=== PATIENT | male | born 1960 | race Caucasian/White ===

== ENCOUNTER 2016-12-01 10:22 | Inpatient (IN) | payer OTHER ==
[2016-12-01 12:37] VITALS: BMI 24.0
--- NOTE | 2016-12-01 16:34 | HP ---
CIWA Score - CIWA Score Nausea/Vomitin-No Nausea/No Vomiting Muscle Tremors: 4-Moderate,w/Arms Extend Anxiety: 4-Mod. Anxious/Guarded Agitation: 4-Moderately Restless Paroxysmal Sweats: 1-Minimal Palms Moist Orientation: 1-Uncertain about Date Tacttile Disturbances: 0-None Auditory Disturbances: 0-None Visual Disturbances: 0-None Headache: 0-None Present CIWA-Ar Total Score: 14 Admission [facility] - HPI Chief Complaint: withdrawal sx Allergies/Adverse Reactions: Allergies Allergy/AdvReac Type Severity Reaction Status Date / Time No Known Allergies Allergy Verified 12/01/16 16:00 History of Present Illness: 56 years old male with long history of alcohol nicotine dependence, alcohol intoxication treated at "[facility]" over night, received "benzo" for timorous, released 12/01/[address] [facility] for alcohol detox has diabetes ii, neuropathy, sciatic of legs asthma gerd and depression is admitted to detox Exam Limitations: No Limitations - Ebola screening Have you traveled outside of the country in the last 21 days: No Have you had contact with anyone from an Ebola affected area: No Have you been sick,other than usual withdrawal symptoms: No Do you have a fever: No - Review of Systems Constitutional: Loss of Appetite, Changes in sleep, Unintentional Wgt. Loss, Unexplained wgt Loss EENT: reports: Blurred Vision (needs eye glasses), Dental Problems (few teeth left "I can chew") Respiratory: reports: SOB with Exertion, Productive cough (yellowish) Cardiac: reports: No Symptoms Reported GI: reports: Nausea, Poor Appetite, Poor Fluid Intake, Indigestion, Abdominal cramping : reports: No Symptoms Reported Musculoskeletal: reports: Back Pain, Joint Pain (both legs neuropathy), Joint Swelling (right foot left wrist), Muscle Pain, Neck Pain Integumentary: reports: No Symptoms Reported Neuro: reports: Tremors Endocrine: reports: Increased Urine Hematology: reports: No Symptoms Reported Psychiatric: reports: Judgement Intact, Anxious, Depressed Other Systems: Reviewed and Negative Patient History - Patient Medical History Hx Anemia: No Hx Asthma: Yes Hx Chronic Obstructive Pulmonary Disease (COPD): Yes Hx Cancer: No Hx Cardiac Disorders: No Hx Congestive Heart Failure: No Hx Hypertension: No Hx Hypercholesterolemia: No Hx Pacemaker: No HX Cerebrovascular Accident: No Hx Seizures: No Hx Dementia: No Hx Diabetes: Yes Hx Gastrointestinal Disorders: Yes Hx Liver Disease: No Hx Genitourinary Disorders: No Hx Sexually Transmitted Disorders: No Hx Renal Disease (ESRD): No Hx Thyroid Disease: No Hx Human Immunodeficiency Virus (HIV): No Hx Hepatitis C: No Hx Depression: Yes Hx Suicide Attempt: No Hx Bipolar Disorder: No Hx Schizophrenia: No - Patient Surgical History Past Surgical History: Yes Hx Neurologic Surgery: No Hx Cataract Extraction: No Hx Cardiac Surgery: No Hx Lung Surgery: No Hx Breast Surgery: No Hx Breast Biopsy: No Hx Abdominal Surgery: Yes (HERNIA SX 2001) Hx Appendectomy: No Hx Cholecystectomy: No Hx Genitourinary Surgery: No Hx Orthopedic Surgery: Yes (right leg 2014) Other Surgical History: NECK SX left arm Anesthesia Reaction: No - PPD History Previous Implant?: Yes Documented Results: Negative w/proof Implanted On Prior [facility] Admission?: Yes Date: 05/07/11 PPD to be Administered?: Yes - Smoking Cessation Smoking history: Current every day smoker Have you smoked in the past 12 months: Yes Aproximately how many cigarettes per day: 1 Cigars Per Day: 0 Hx Chewing Tobacco Use: No Initiated information on smoking cessation: Yes 'Breaking Loose' booklet given: 12/01/16 - Substance & Tx. History Hx Alcohol Use: Yes Hx Substance Use: Yes Substance Use Type: Alcohol, Heroin Hx Substance Use Treatment: Yes (2011 [facility]) - Substances Abused Alcohol Route: Oral Frequency: Daily Alcohol-vodka Route: Oral Frequency: Daily Amount used: 2 pts. Age of first use: 17 Date of Last Use: 12/01/16 Family Disease History - Family Disease History Family Disease History: Diabetes: Sister, Heart Disease: Mother (), Other: Father (/suicidal), Mother Admission Physical Exam S - Vital Signs Vital Signs: Vital Signs - 24 hr 12/01/16 12:29 Temperature 97.5 F L Pulse Rate 60 Respiratory 18 Rate Blood Pressure 124/70 - Physical General Appearance: Yes: Appropriately Dressed, Mild Distress, Alcohol on Breath , Thin, Tremorous, Irritable, Sweating, Anxious HEENTM: Yes: Hearing grossly Normal, Normal ENT Inspection, Normocephalic, Normal Voice Respiratory: Yes: No Respiratory Distress, No Accessory Muscle Use, Rhonchi, Wheezing, Hyperresonant Neck: Yes: Supple, Trachea in good position Breast: Yes: Breasts Symetrical Cardiology: Yes: Regular Rhythm, Regular Rate, S1, S2 Abdominal: Yes: Non Tender, Soft, Increased Bowel Sounds Genitourinary: Yes: Within Normal Limits Back: Yes: Normal Inspection Musculoskeletal: Yes: Gait Steady (cane) Extremities: Yes: Non-Tender, Tremors Neurological: Yes: Alert, Normal Response, Depressed Affect Integumentary: Yes: Warm Lymphatic: Yes: Within Normal Limits - Diagnostic (1) Alcohol dependence with uncomplicated withdrawal Current Visit: Yes Status: Acute (2) Methadone maintenance therapy patient Current Visit: Yes Status: Chronic Comment: 260 mg verification pending (3) Asthma Current Visit: Yes Status: Chronic Qualifiers: Asthma severity: moderate Asthma complication type: with status asthmaticus (4) COPD (chronic obstructive pulmonary disease) Current Visit: Yes Status: Chronic Qualifiers: COPD type: emphysema Emphysema type: unilateral Qualified Code(s ): J43.0 - Unilateral pulmonary emphysema [MacLeod's syndrome]; J43.0 - Unilateral pulmonary emphysema [MacLeod's syndrome]; J43.0 - Unilateral pulmonary emphysema [MacLeod's syndrome]; J43.0 - Unilateral pulmonary emphysema [MacLeod's syndrome] (5) GERD (gastroesophageal reflux disease) Current Visit: Yes Status: Chronic Qualifiers: Esophagitis presence: without esophagitis Qualified Code(s): K21.9 - Gastro-esophageal reflux disease without esophagitis; K21.9 - Gastro- esophageal reflux disease without esophagitis; K21.9 - Gastro-esophageal reflux disease without esophagitis (6) Nicotine dependence Current Visit: Yes Status: Acute Qualifiers: Nicotine product type: cigarettes Substance use status: in withdrawal Qualified Code(s): F17.213 - Nicotine dependence, cigarettes, with withdrawal; F17.213 - Nicotine dependence, cigarettes, with withdrawal (7) 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 Current Visit: Yes Status: Chronic (8) Neuropathy Current Visit: Yes Status: Chronic Comment: both legs (9) Weight loss Current Visit: Yes Status: Acute (10) Arthritis, lumbar spine Current Visit: Yes Status: Chronic (11) Mobility impaired Current Visit: Yes Status: Chronic Comment: left wrist (12) Use of cane as ambulatory aid Current Visit: Yes Status: Chronic Cleared for Admission [facility] - Detox or Rehab [facility] Level of Care: Medically Managed [facility]ox [facility] Alcohol Content Breath Alcohol Content: 0.030 Urine Drug Screen - Results Drug Screen Negative: No Urine Drug Screen Results: BZO-Benzodiazepines, MTD-Methadone
[2016-12-01] MEDS ORDERED: chlordiazePOXIDE HCL 25 MG CAPSULE PO PRN (16:41)
[2016-12-01] MEDS ORDERED: MAG HYDROX/AL HYDROX/SIMETH 30 ML UNIT-DOSE CUP PO PRN (16:41)
[2016-12-01] MEDS ORDERED: MENTHOL/PHENOL 1 EACH UD MM PRN (16:41)
[2016-12-01] MEDS ORDERED: NICOTINE 14 MG/24 HOURS TOPICAL PATCH TD PRN (16:41)
[2016-12-01] MEDS ORDERED: NICOTINE POLACRILEX 2 MG GUM BUC PRN (16:41)
[2016-12-01] MEDS ORDERED: MAGNESIUM CITRATE 300 ML BOTTLE PO PRN (16:41)
[2016-12-01] MEDS ORDERED: LOPERAMIDE HCL 2 MG CAPSULE PO PRN (16:41)
[2016-12-01] MEDS ORDERED: ACETAMINOPHEN 325 MG TABLET (FP) PO PRN (16:41)
[2016-12-01] MEDS ORDERED: MAGNESIUM HYDROX 2400MG/30ML ORAL SUSPENSION 30 ML CUP PO PRN (16:41)
[2016-12-01] MEDS ORDERED: guaiFENesin/D-METHORPHAN HB 10 ML UNIT-DOSE CUPS PO PRN (16:41)
[2016-12-01] MEDS ORDERED: P-EPHED 60MG/TRIPROLIDI 2.5MG TABLET PO PRN (16:41)
[2016-12-01] MEDS ORDERED: ALBUTEROL SO4 2.5/IPRATROPIUM 0.5 INH SOL 3 ML VIAL.NEB. NEB PRN (16:44)
[2016-12-01] MEDS ORDERED: ALBUTEROL SO4 18 GM HFA INHALER IH PRN (16:44)
[2016-12-01] MEDS ORDERED: METHOCARBAMOL 500 MG TABLET PO PRN (17:54)
[2016-12-01] MEDS ORDERED: diphenhydrAMINE HCL 50 MG CAPSULE PO PRN (22:00)
[2016-12-01 22:18] LABS: URINE APPEARANCE CLEAR; URINE BILIRUBIN NEGATIVE (NEGATIVE); URINE BLOOD NEGATIVE (NEGATIVE); URINE COLOR LTYELLOW; URINE GLUCOSE (UA) NEGATIVE (NEGATIVE); URINE KETONE NEGATIVE (NEGATIVE); URINE NITRITE NEGATIVE (NEGATIVE); URINE PROTEIN NEGATIVE (NEGATIVE); URINE UROBILINOGEN NEGATIVE mg/dL (0.2-1.0)
[2016-12-01] MEDS: BUDESONIDE/FORMETEROL FUMARATE 80/4.5 mcg INHALER IH SCH (22:33)
[2016-12-01] MEDS: chlordiazePOXIDE HCL 25 MG CAPSULE PO SCH (22:34)
[2016-12-01] MEDS: THIAMINE HCL 100 MG TABLET (FP) PO SCH (22:34)
[2016-12-01] MEDS: MONTELUKAST NA 10 MG TABLET PO SCH (22:34)
[2016-12-01] MEDS: LIDOCAINE PATCH REMOVAL MC SCH (22:34)
[2016-12-01] MEDS: RANITIDINE HCL 150 MG TABLET (FP) PO SCH (22:34)
[2016-12-01] MEDS: GABAPENTIN 300 MG CAPSULE (FP) PO SCH (22:34)
[2016-12-01 23:02] LABS: URINE LEUK ESTERASE Negative (NEGATIVE)
[2016-12-02] MEDS: glipiZIDE-XL 5 MG TAB.ER.24 PO SCH (06:30)
[2016-12-02] MEDS: metFORMIN HCL 500 MG TABLET (FP) PO SCH ×2 (06:30→17:42)
[2016-12-02] MEDS: chlordiazePOXIDE HCL 25 MG CAPSULE PO SCH ×4 (06:30→22:24)
[2016-12-02] MEDS: GABAPENTIN 300 MG CAPSULE (FP) PO SCH ×3 (06:30→22:20)
[2016-12-02] MEDS ORDERED: METHADONE HCL 10 MG TABLET PO ONE (09:06)
[2016-12-02] MEDS ORDERED: METHADONE PO ONE (09:38)
--- NOTE | 2016-12-02 09:51 | EKG ---
Test Reason : Blood Pressure : / mmHG Vent. Rate : 046 BPM Atrial Rate : 046 BPM P-R Int : 174 ms QRS Dur : 088 ms QT Int : 522 ms P-R-T Axes : 061 000 062 degrees QTc Int : 456 ms SINUS BRADYCARDIA WITH SINUS ARRHYTHMIA NO PREVIOUS ECGS AVAILABLE Confirmed by RYAN GOODWIN MD ([id number]) on 12/02/2016 9:50:54 AM Referred By: Confirmed By:RYAN GOODWIN MD
[2016-12-02 09:57] LABS: MCH 27.4 pg (25.7-33.7); MCHC 31.8 g/dl (32.0-35.9); MEAN PLT VOLUME 7.9 fl (7.5-11.1); PLATELET COUNT 227 K/MM3 (134-434); RDW 16.2 % (11.9-15.9); WHITE BLOOD COUNT 8.3 K/mm3 (4.0-10.0)
[2016-12-02] MEDS ORDERED: METHADONE HCL 10 MG TABLET ONE (10:02)
[2016-12-02] MEDS ORDERED: METHADONE HCL 40 MG DISPERSABLE TABLET ONE (10:03)
[2016-12-02 10:13] LABS: ALBUMIN 2.9 g/dl (3.4-5.0); ALK PHOS 69 U/L (45-117); ANION GAP 7 (8-16); BILIRUBIN,TOTAL 0.3 mg/dL (0.2-1.0); CALCIUM 8.2 mg/dL (8.5-10.1); CO2 29 mmol/L (21-32); CREATININE 0.8 mg/dL (0.7-1.3); GLUCOSE,RANDOM 120 mg/dL (74-106); SGOT/AST 22 U/L (15-37); SGPT/ALT 28 U/L (12-78); TOT PROT 6.1 g/dl (6.4-8.2)
[2016-12-02] MEDS: BUDESONIDE/FORMETEROL FUMARATE 80/4.5 mcg INHALER IH SCH ×2 (10:23→22:21)
[2016-12-02] MEDS: LIDOCAINE 5% TOPICAL PATCH TP SCH (10:24)
[2016-12-02] MEDS: RANITIDINE HCL 150 MG TABLET (FP) PO SCH ×2 (10:24→22:20)
[2016-12-02] MEDS: ASPIRIN 81 MG CHEWABLE TABLETS PO SCH (10:24)
[2016-12-02] MEDS: PRENATAL VITAMINS W/ FOLIC ACID TABLET (FP) PO SCH (10:24)
[2016-12-02 10:28] LABS: HIV 1 & 2 AB NEGATIVE; HIV 1 AGp24 NEGATIVE
--- NOTE | 2016-12-02 12:01 | PN ---
[facility] CIWA - CIWA Score Nausea/Vomitin-No Nausea/No Vomiting Muscle Tremors: 4-Moderate,w/Arms Extend Anxiety: 4-Mod. Anxious/Guarded Agitation: 4-Moderately Restless Paroxysmal Sweats: 1-Minimal Palms Moist Orientation: 0-Oriented Tacttile Disturbances: 3-Moderate Itch/Numb/Burn Auditory Disturbances: 0-None Visual Disturbances: 0-None Headache: 0-None Present CIWA-Ar Total Score: 16 S Progress Note (SOAP) Subjective: ANXIETY,SWEATS,TREMORS,IRRITABILITY,INTERMITTENT SLEEP. Objective: 12/02/16 12:00 Vital Signs Temperature 96.4 F L 12/02/16 09:55 Pulse Rate 98 H 12/02/16 09:55 Respiratory Rate 18 12/02/16 09:55 Blood Pressure 128/82 12/02/16 09:55 O2 Sat by Pulse Oximetry (%) Laboratory Last Values WBC 8.3 K/mm3 (4.0-10.0) 12/02/16 07:00 RBC 4.73 M/mm3 (4.00-5.60) 12/02/16 07:00 Hgb 13.0 GM/dL (11.7-16.9) 12/02/16 07:00 Hct 40.7 % (35.4-49) 12/02/16 07:00 MCV 86.0 fl (80-96) 12/02/16 07:00 MCH 27.4 pg (25.7-33.7) 12/02/16 07:00 MCHC 31.8 g/dl (32.0-35.9) L 12/02/16 07:00 RDW 16.2 % (11.9-15.9) H 12/02/16 07:00 Plt Count 227 K/MM3 (134-434) D 12/02/16 07:00 MPV 7.9 fl (7.5-11.1) 12/02/16 07:00 Sodium 139 mmol/L (136-145) 12/02/16 07:00 Potassium 4.2 mmol/L (3.5-5.1) 12/02/16 07:00 Chloride 103 mmol/L (98-107) 12/02/16 07:00 Carbon Dioxide 29 mmol/L (21-32) 12/02/16 07:00 Anion Gap 7 (8-16) L 12/02/16 07:00 BUN 9 mg/dL (7-18) D 12/02/16 07:00 Creatinine 0.8 mg/dL (0.7-1.3) 12/02/16 07:00 Creat Clearance w eGFR > 60 (>60) 12/02/16 07:00 POC Glucometer 131 UNITS (()) 12/02/16 06:26 Random Glucose 120 mg/dL (74-106) H D 12/02/16 07:00 Calcium 8.2 mg/dL (8.5-10.1) L 12/02/16 07:00 Total Bilirubin 0.3 mg/dL (0.2-1.0) 12/02/16 07:00 AST 22 U/L (15-37) D 12/02/16 07:00 ALT 28 U/L (12-78) 12/02/16 07:00 Alkaline Phosphatase 69 U/L (45-117) 12/02/16 07:00 Total Protein 6.1 g/dl (6.4-8.2) L 12/02/16 07:00 Albumin 2.9 g/dl (3.4-5.0) L 12/02/16 07:00 Urine Color Ltyellow 12/01/16 21:30 Urine Appearance Clear 12/01/16 21:30 Urine pH 6.0 (5.0-8.0) 12/01/16 21:30 Ur Specific [place] 1.010 (1.005-1.025) 12/01/16 21:30 Urine Protein Negative (NEGATIVE) 12/01/16 21:30 Urine Glucose (UA) Negative (NEGATIVE) 12/01/16 21:30 Urine Ketones Negative (NEGATIVE) 12/01/16 21:30 Urine Blood Negative (NEGATIVE) 12/01/16 21:30 Urine Nitrite Negative (NEGATIVE) 12/01/16 21:30 Urine Bilirubin Negative (NEGATIVE) 12/01/16 21:30 Urine Urobilinogen Negative mg/dL (0.2-1.0) 12/01/16 21:30 Ur Leukocyte Esterase Negative (NEGATIVE) 12/01/16 21:30 HIV 1&2 Antibody Screen Negative 12/02/16 08:30 HIV P24 Antigen Negative 12/02/16 08:30 Assessment: 12/02/16 12:01 WITHDRAWAL SX Plan: CONTINUE DETOX START ZANTAC 150 MG PO BID
--- NOTE | 2016-12-02 16:26 | CONSULT ---
[facility] Psychiatric Consult - Data Date of interview: 12/02/16 Admission source: [facility] Identifying data: Readmission to [facility] for this 56 y/o [place] male seeking detox treatment on for alcohol and heroin dependence.Patient is single,a father of one,homeless,unemployed and supported on SSI benefits. Substance Abuse History: Confirmed by royer in this interview. Smoking Cessation. Smoking history: Current every day smoker. Have you smoked in the past 12 months: Yes. Aproximately how many cigarettes per day: 1. Cigars Per Day: 0. Hx Chewing Tobacco Use: No. Initiated information on smoking cessation : Yes. 'Breaking Loose' booklet given: 12/01/16. - Substance & Tx. History. Hx Alcohol Use: Yes. Hx Substance Use: Yes. Substance Use Type: Alcohol, Heroin. Hx Substance Use Treatment: Yes (2011). - Substances Abused. Alcohol. Route: Oral. Frequency: Daily. Alcohol-vodka. Route : Oral. Frequency: Daily. Amount used: 2 pts. Age of first use: 17. Date of Last Use: 12/01/16 Medical History: Remarkable for COPD,emphysema,diabetes mellitus,GERD,sciatica, neuropathy,past history of inguinal herniorraphy + orthosurgery (left leg in 2015). Psychiatric History: Patient denies history of psychiatric hospitalizations.Diagnosed with PTSD and Anxiety Disorder.Followed at a mental health clinic in the [place] (name not recalled by patient but telephone is ).It appears that the patient is residing at [facility] ( followed on site by [email or web address]).Medicated with geodon as per self- report.Mr Sagastume denies history of suicide attempts.Patient is on methadone maintenance (260 mg/day). Physical/Sexual Abuse/Trauma History: Denies. Additional Comment: Urine Drug Screen Results: BZO-Benzodiazepines, MTD- Methadone.Noted. Mental Status Exam - Mental Status Exam Alert and Oriented to: Time, Place, Person Cognitive Function: Good Patient Appearance: Well Groomed (tattoos on foerarms) Mood: Hopeful, Euthymic Affect: Appropriate, Normal Range Patient Behavior: Fatigued, Cooperative Speech Pattern: Clear (bilingual) Voice Loudness: Normal Thought Process: Intact, Goal Oriented Thought Disorder: Not Present Hallucinations: Denies Suicidal Ideation: Denies Homicidal Ideation: Denies Insight/Judgement: Poor Sleep: Poorly, Difficulty falling asleep Appetite: Fair Gait/Station: Other (walks with a cane) Psychiatric Findings - Problem List ([place] 1, 2,3) (1) Alcohol dependence with uncomplicated withdrawal Current Visit: Yes Status: Acute (2) Opioid dependence on agonist therapy Current Visit: Yes Status: Acute (3) Nicotine dependence Current Visit: Yes Status: Acute Qualifiers: Nicotine product type: cigarettes Substance use status: in withdrawal Qualified Code(s): F17.213 - Nicotine dependence, cigarettes, with withdrawal; F17.213 - Nicotine dependence, cigarettes, with withdrawal (4) Substance induced mood disorder Current Visit: Yes Status: Acute (5) Post traumatic stress disorder (PTSD) Current Visit: Yes Status: Chronic Comment: Reported by patient. (6) Weight loss Current Visit: Yes Status: Chronic (7) Arthritis, lumbar spine Current Visit: Yes Status: Chronic (8) Asthma Current Visit: Yes Status: Chronic Qualifiers: Asthma severity: moderate Asthma complication type: with status asthmaticus (9) COPD (chronic obstructive pulmonary disease) Current Visit: Yes Status: Chronic Qualifiers: COPD type: emphysema Emphysema type: unilateral Qualified Code(s ): J43.0 - Unilateral pulmonary emphysema [MacLeod's syndrome]; J43.0 - Unilateral pulmonary emphysema [MacLeod's syndrome]; J43.0 - Unilateral pulmonary emphysema [MacLeod's syndrome]; J43.0 - Unilateral pulmonary emphysema [MacLeod's syndrome] (10) 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 Current Visit: Yes Status: Chronic (11) GERD (gastroesophageal reflux disease) Current Visit: Yes Status: Chronic Qualifiers: Esophagitis presence: without esophagitis Qualified Code(s): K21.9 - Gastro-esophageal reflux disease without esophagitis; K21.9 - Gastro- esophageal reflux disease without esophagitis; K21.9 - Gastro-esophageal reflux disease without esophagitis (12) Neuropathy Current Visit: Yes Status: Chronic Comment: both legs (13) Use of cane as ambulatory aid Current Visit: Yes Status: Chronic (14) Insomnia Current Visit: Yes Status: Acute - Initial Treatment Plan Initial Treatment Plan: Psychoeducation.Detoxification.Medications : celexa 20 mg po daily + geodon 20 mg po bid + benadryl 50 mg po at bedtime.Side effects/ benefits of each medication are discussed with patient.He agrees with this careplan.Observation.Medications are verified with staff at [facility] (doses are reduced by half as a caution against oversedation).
[2016-12-02] MEDS: MONTELUKAST NA 10 MG TABLET PO SCH (22:21)
[2016-12-02] MEDS: THIAMINE HCL 100 MG TABLET (FP) PO SCH (22:21)
[2016-12-02] MEDS: ZIPRASIDONE 20 MG CAPSULE PO SCH (22:23)
[2016-12-02] MEDS: LIDOCAINE PATCH REMOVAL MC SCH (22:23)
[2016-12-03] MEDS ORDERED: METHADONE HCL 10 MG TABLET PO SCH (06:00)
[2016-12-03] MEDS ORDERED: METHADONE HCL 10 MG TABLET ONE (06:09)
[2016-12-03] MEDS ORDERED: METHADONE HCL 40 MG DISPERSABLE TABLET ONE (06:09)
[2016-12-03] MEDS: METHADONE PO SCH (06:10)
[2016-12-03] MEDS: GABAPENTIN 300 MG CAPSULE (FP) PO SCH ×3 (06:10→22:42)
[2016-12-03] MEDS: chlordiazePOXIDE HCL 25 MG CAPSULE PO SCH ×3 (06:45→17:33)
[2016-12-03] MEDS: metFORMIN HCL 500 MG TABLET (FP) PO SCH ×2 (07:56→17:33)
[2016-12-03] MEDS: glipiZIDE-XL 5 MG TAB.ER.24 PO SCH (07:57)
[2016-12-03] MEDS: ASPIRIN 81 MG CHEWABLE TABLETS PO SCH (11:06)
[2016-12-03] MEDS: PRENATAL VITAMINS W/ FOLIC ACID TABLET (FP) PO SCH (11:06)
[2016-12-03] MEDS: RANITIDINE HCL 150 MG TABLET (FP) PO SCH ×2 (11:06→22:42)
[2016-12-03] MEDS: ZIPRASIDONE 20 MG CAPSULE PO SCH ×2 (11:07→22:43)
[2016-12-03] MEDS: CITALOPRAM HYDROBROMIDE 20 MG TABLET (FP) PO SCH (11:07)
[2016-12-03] MEDS: LIDOCAINE 5% TOPICAL PATCH TP SCH (11:09)
[2016-12-03] MEDS: BUDESONIDE/FORMETEROL FUMARATE 80/4.5 mcg INHALER IH SCH ×2 (11:10→22:41)
--- NOTE | 2016-12-03 15:17 | PN ---
[facility] CIWA - CIWA Score Nausea/Vomitin-No Nausea/No Vomiting Muscle Tremors: 4-Moderate,w/Arms Extend Anxiety: 2 Agitation: 2 Paroxysmal Sweats: 3 Orientation: 0-Oriented Tacttile Disturbances: 2-Mild Itch/Numbness/Burn Auditory Disturbances: 0-None Visual Disturbances: 3-Moderate Sensitivity Headache: 0-None Present CIWA-Ar Total Score: 16 S Progress Note (SOAP) Subjective: Body Aches, Tremors, Interrupted sleep. Objective: PT. A & O X 3, OBSERVED AMBULATING ON UNIT WITH ASSISTANCE OF A CANE. NO ACUTE DISTRESS. 12/03/16 15:15 Vital Signs Temperature 96.0 F L 12/03/16 14:56 Pulse Rate 70 12/03/16 14:56 Respiratory Rate 20 12/03/16 14:56 Blood Pressure 107/77 12/03/16 14:56 O2 Sat by Pulse Oximetry (%) Laboratory Tests 12/01/16 12/01/16 12/01/16 07:00 16:47 21:30 WBC RBC Hgb Hct MCV MCH MCHC RDW Plt Count MPV Sodium Potassium Chloride Carbon Dioxide Anion Gap BUN Creatinine Creat Clearance w eGFR POC Glucometer 160 Random Glucose Calcium Total Bilirubin AST ALT Alkaline Phosphatase Total Protein Albumin Urine Color Ltyellow Urine Appearance Clear Urine pH 6.0 Ur Specific [place] 1.010 Urine Protein Negative Urine Glucose (UA) Negative Urine Ketones Negative Urine Blood Negative Urine Nitrite Negative Urine Bilirubin Negative Urine Urobilinogen Negative Ur Leukocyte Esterase Negative RPR Titer Hepatitis C Antibody <0.1 HIV 1&2 Antibody Screen HIV P24 Antigen 12/02/16 12/02/16 12/02/16 06:26 07:00 07:00 WBC 8.3 RBC 4.73 Hgb 13.0 Hct 40.7 MCV 86.0 MCH 27.4 MCHC 31.8 L RDW 16.2 H Plt Count 227 D MPV 7.9 Sodium 139 Potassium 4.2 Chloride 103 Carbon Dioxide 29 Anion Gap 7 L BUN 9 D Creatinine 0.8 Creat Clearance w eGFR > 60 POC Glucometer 131 Random Glucose 120 H D Calcium 8.2 L Total Bilirubin 0.3 AST 22 D ALT 28 Alkaline Phosphatase 69 Total Protein 6.1 L Albumin 2.9 L Urine Color Urine Appearance Urine pH Ur Specific [place] Urine Protein Urine Glucose (UA) Urine Ketones Urine Blood Urine Nitrite Urine Bilirubin Urine Urobilinogen Ur Leukocyte Esterase RPR Titer Hepatitis C Antibody HIV 1&2 Antibody Screen HIV P24 Antigen 12/02/16 12/02/16 12/02/16 07:00 08:30 16:22 WBC RBC Hgb Hct MCV MCH MCHC RDW Plt Count MPV Sodium Potassium Chloride Carbon Dioxide Anion Gap BUN Creatinine Creat Clearance w eGFR POC Glucometer 102 Random Glucose Calcium Total Bilirubin AST ALT Alkaline Phosphatase Total Protein Albumin Urine Color Urine Appearance Urine pH Ur Specific [place] Urine Protein Urine Glucose (UA) Urine Ketones Urine Blood Urine Nitrite Urine Bilirubin Urine Urobilinogen Ur Leukocyte Esterase RPR Titer Nonreactive Hepatitis C Antibody HIV 1&2 Antibody Screen Negative HIV P24 Antigen Negative 12/03/16 06:08 WBC RBC Hgb Hct MCV MCH MCHC RDW Plt Count MPV Sodium Potassium Chloride Carbon Dioxide Anion Gap BUN Creatinine Creat Clearance w eGFR POC Glucometer 95 Random Glucose Calcium Total Bilirubin AST ALT Alkaline Phosphatase Total Protein Albumin Urine Color Urine Appearance Urine pH Ur Specific [place] Urine Protein Urine Glucose (UA) Urine Ketones Urine Blood Urine Nitrite Urine Bilirubin Urine Urobilinogen Ur Leukocyte Esterase RPR Titer Hepatitis C Antibody HIV 1&2 Antibody Screen HIV P24 Antigen LABS NOTED. Assessment: 12/03/16 15:16 WITHDRAWAL SYMPTOMS. Plan: CONTINUE DETOX.
[2016-12-03] MEDS: chlordiazePOXIDE 5 MG CAPSULE PO SCH (22:42)
[2016-12-03] MEDS: MONTELUKAST NA 10 MG TABLET PO SCH (22:42)
[2016-12-03] MEDS: THIAMINE HCL 100 MG TABLET (FP) PO SCH (22:42)
[2016-12-03] MEDS: LIDOCAINE PATCH REMOVAL MC SCH (22:43)
[2016-12-04] MEDS ORDERED: METHADONE HCL 10 MG TABLET ONE (04:36)
[2016-12-04] MEDS ORDERED: METHADONE HCL 40 MG DISPERSABLE TABLET ONE (04:36)
[2016-12-04] MEDS: GABAPENTIN 300 MG CAPSULE (FP) PO SCH ×3 (05:36→22:26)
[2016-12-04] MEDS: METHADONE PO SCH (05:36)
[2016-12-04] MEDS: glipiZIDE-XL 5 MG TAB.ER.24 PO SCH (07:26)
[2016-12-04] MEDS: metFORMIN HCL 500 MG TABLET (FP) PO SCH ×2 (07:26→17:27)
[2016-12-04] MEDS: chlordiazePOXIDE 5 MG CAPSULE PO SCH ×3 (07:27→17:25)
[2016-12-04] MEDS: BUDESONIDE/FORMETEROL FUMARATE 80/4.5 mcg INHALER IH SCH ×2 (10:20→22:27)
[2016-12-04] MEDS: ASPIRIN 81 MG CHEWABLE TABLETS PO SCH (10:21)
[2016-12-04] MEDS: CITALOPRAM HYDROBROMIDE 20 MG TABLET (FP) PO SCH (10:21)
[2016-12-04] MEDS: RANITIDINE HCL 150 MG TABLET (FP) PO SCH ×2 (10:21→22:26)
[2016-12-04] MEDS: ZIPRASIDONE 20 MG CAPSULE PO SCH ×2 (10:22→22:26)
[2016-12-04] MEDS: PRENATAL VITAMINS W/ FOLIC ACID TABLET (FP) PO SCH (10:23)
[2016-12-04] MEDS: LIDOCAINE 5% TOPICAL PATCH TP SCH (10:24)
--- NOTE | 2016-12-04 16:59 | PN ---
[facility] Progress Note (SOAP) Subjective: Sweating,interrupted sleep,restless Objective: 12/04/16 16:56 Vital Signs - 8 hr 12/04/16 12/04/16 09:21 13:21 Temperature 98.8 F 98.2 F Pulse Rate 82 83 Respiratory 18 18 Rate Blood Pressure 101/70 106/67 Laboratory Last Values WBC 8.3 K/mm3 (4.0-10.0) 12/02/16 07:00 RBC 4.73 M/mm3 (4.00-5.60) 12/02/16 07:00 Hgb 13.0 GM/dL (11.7-16.9) 12/02/16 07:00 Hct 40.7 % (35.4-49) 12/02/16 07:00 MCV 86.0 fl (80-96) 12/02/16 07:00 MCH 27.4 pg (25.7-33.7) 12/02/16 07:00 MCHC 31.8 g/dl (32.0-35.9) L 12/02/16 07:00 RDW 16.2 % (11.9-15.9) H 12/02/16 07:00 Plt Count 227 K/MM3 (134-434) D 12/02/16 07:00 MPV 7.9 fl (7.5-11.1) 12/02/16 07:00 Sodium 139 mmol/L (136-145) 12/02/16 07:00 Potassium 4.2 mmol/L (3.5-5.1) 12/02/16 07:00 Chloride 103 mmol/L (98-107) 12/02/16 07:00 Carbon Dioxide 29 mmol/L (21-32) 12/02/16 07:00 Anion Gap 7 (8-16) L 12/02/16 07:00 BUN 9 mg/dL (7-18) D 12/02/16 07:00 Creatinine 0.8 mg/dL (0.7-1.3) 12/02/16 07:00 Creat Clearance w eGFR > 60 (>60) 12/02/16 07:00 POC Glucometer 70 UNITS (()) 12/04/16 16:32 Random Glucose 120 mg/dL (74-106) H D 12/02/16 07:00 Calcium 8.2 mg/dL (8.5-10.1) L 12/02/16 07:00 Total Bilirubin 0.3 mg/dL (0.2-1.0) 12/02/16 07:00 AST 22 U/L (15-37) D 12/02/16 07:00 ALT 28 U/L (12-78) 12/02/16 07:00 Alkaline Phosphatase 69 U/L (45-117) 12/02/16 07:00 Total Protein 6.1 g/dl (6.4-8.2) L 12/02/16 07:00 Albumin 2.9 g/dl (3.4-5.0) L 12/02/16 07:00 Urine Color Ltyellow 12/01/16 21:30 Urine Appearance Clear 12/01/16 21:30 Urine pH 6.0 (5.0-8.0) 12/01/16 21:30 Ur Specific [place] 1.010 (1.005-1.025) 12/01/16 21:30 Urine Protein Negative (NEGATIVE) 12/01/16 21:30 Urine Glucose (UA) Negative (NEGATIVE) 12/01/16 21:30 Urine Ketones Negative (NEGATIVE) 12/01/16 21:30 Urine Blood Negative (NEGATIVE) 12/01/16 21:30 Urine Nitrite Negative (NEGATIVE) 12/01/16 21:30 Urine Bilirubin Negative (NEGATIVE) 12/01/16 21:30 Urine Urobilinogen Negative mg/dL (0.2-1.0) 12/01/16 21:30 Ur Leukocyte Esterase Negative (NEGATIVE) 12/01/16 21:30 RPR Titer Nonreactive (NONREACTIVE) 12/02/16 07:00 Hepatitis C Antibody <0.1 s/co ratio (0.0-0.9) 12/01/16 07:00 HIV 1&2 Antibody Screen Negative 12/02/16 08:30 HIV P24 Antigen Negative 12/02/16 08:30 labs noted Assessment: 12/04/16 16:56 Withdrawal sx. Plan: Continue detox
[2016-12-04] MEDS: LIDOCAINE PATCH REMOVAL MC SCH (22:26)
[2016-12-04] MEDS: MONTELUKAST NA 10 MG TABLET PO SCH (22:26)
[2016-12-04] MEDS: THIAMINE HCL 100 MG TABLET (FP) PO SCH (22:26)
[2016-12-04] MEDS: chlordiazePOXIDE HCL 10 MG CAPSULE PO SCH (22:27)
[2016-12-05] MEDS ORDERED: METHADONE HCL 40 MG DISPERSABLE TABLET ONE (03:17)
[2016-12-05] MEDS ORDERED: METHADONE HCL 10 MG TABLET ONE (03:17)
[2016-12-05] MEDS: METHADONE PO SCH (05:39)
[2016-12-05] MEDS: GABAPENTIN 300 MG CAPSULE (FP) PO SCH (05:39)
[2016-12-05] MEDS: metFORMIN HCL 500 MG TABLET (FP) PO SCH (06:29)
[2016-12-05] MEDS: chlordiazePOXIDE HCL 10 MG CAPSULE PO SCH ×2 (06:29→10:16)
[2016-12-05] MEDS: glipiZIDE-XL 5 MG TAB.ER.24 PO SCH (06:29)
[2016-12-05] MEDS: PRENATAL VITAMINS W/ FOLIC ACID TABLET (FP) PO SCH (10:14)
[2016-12-05] MEDS: ASPIRIN 81 MG CHEWABLE TABLETS PO SCH (10:14)
[2016-12-05] MEDS: LIDOCAINE 5% TOPICAL PATCH TP SCH (10:14)
[2016-12-05] MEDS: ZIPRASIDONE 20 MG CAPSULE PO SCH (10:14)
[2016-12-05] MEDS: CITALOPRAM HYDROBROMIDE 20 MG TABLET (FP) PO SCH (10:14)
[2016-12-05] MEDS: BUDESONIDE/FORMETEROL FUMARATE 80/4.5 mcg INHALER IH SCH (10:14)
[2016-12-05] MEDS: RANITIDINE HCL 150 MG TABLET (FP) PO SCH (10:16)
--- NOTE | 2016-12-05 11:04 | DS ---
[facility] Detox Discharge Summary Admission Date: 12/01/16 Discharge Date: 12/05/16 - History Present History: Alcohol Dependence, MMTP Additional Comments: reveiwed labwork with patient , patient will follow up with primary care provider on discharge for medical conditions Pertinent Past History: nicotine dependence, insomnia, anxiety, tremors, asthma, GERD, COPD, DM, ambulates with a cane - Physical Exam Results Vital Signs: Vital Signs Temperature 98.1 F 12/05/16 10:36 Pulse Rate 66 12/05/16 10:36 Respiratory Rate 18 12/05/16 10:36 Blood Pressure 120/87 12/05/16 10:36 O2 Sat by Pulse Oximetry (%) Laboratory Tests 12/01/16 12/01/16 12/01/16 07:00 16:47 21:30 WBC RBC Hgb Hct MCV MCH MCHC RDW Plt Count MPV Sodium Potassium Chloride Carbon Dioxide Anion Gap BUN Creatinine Creat Clearance w eGFR POC Glucometer 160 Random Glucose Calcium Total Bilirubin AST ALT Alkaline Phosphatase Total Protein Albumin Urine Color Ltyellow Urine Appearance Clear Urine pH 6.0 Ur Specific [place] 1.010 Urine Protein Negative Urine Glucose (UA) Negative Urine Ketones Negative Urine Blood Negative Urine Nitrite Negative Urine Bilirubin Negative Urine Urobilinogen Negative Ur Leukocyte Esterase Negative RPR Titer Hepatitis C Antibody <0.1 HIV 1&2 Antibody Screen HIV P24 Antigen 12/02/16 12/02/16 12/02/16 06:26 07:00 07:00 WBC 8.3 RBC 4.73 Hgb 13.0 Hct 40.7 MCV 86.0 MCH 27.4 MCHC 31.8 L RDW 16.2 H Plt Count 227 D MPV 7.9 Sodium 139 Potassium 4.2 Chloride 103 Carbon Dioxide 29 Anion Gap 7 L BUN 9 D Creatinine 0.8 Creat Clearance w eGFR > 60 POC Glucometer 131 Random Glucose 120 H D Calcium 8.2 L Total Bilirubin 0.3 AST 22 D ALT 28 Alkaline Phosphatase 69 Total Protein 6.1 L Albumin 2.9 L Urine Color Urine Appearance Urine pH Ur Specific [place] Urine Protein Urine Glucose (UA) Urine Ketones Urine Blood Urine Nitrite Urine Bilirubin Urine Urobilinogen Ur Leukocyte Esterase RPR Titer Hepatitis C Antibody HIV 1&2 Antibody Screen HIV P24 Antigen 12/02/16 12/02/16 12/02/16 07:00 08:30 16:22 WBC RBC Hgb Hct MCV MCH MCHC RDW Plt Count MPV Sodium Potassium Chloride Carbon Dioxide Anion Gap BUN Creatinine Creat Clearance w eGFR POC Glucometer 102 Random Glucose Calcium Total Bilirubin AST ALT Alkaline Phosphatase Total Protein Albumin Urine Color Urine Appearance Urine pH Ur Specific [place] Urine Protein Urine Glucose (UA) Urine Ketones Urine Blood Urine Nitrite Urine Bilirubin Urine Urobilinogen Ur Leukocyte Esterase RPR Titer Nonreactive Hepatitis C Antibody HIV 1&2 Antibody Screen Negative HIV P24 Antigen Negative 12/03/16 12/03/16 12/04/16 06:08 16:44 05:35 WBC RBC Hgb Hct MCV MCH MCHC RDW Plt Count MPV Sodium Potassium Chloride Carbon Dioxide Anion Gap BUN Creatinine Creat Clearance w eGFR POC Glucometer 95 108 87 Random Glucose Calcium Total Bilirubin AST ALT Alkaline Phosphatase Total Protein Albumin Urine Color Urine Appearance Urine pH Ur Specific [place] Urine Protein Urine Glucose (UA) Urine Ketones Urine Blood Urine Nitrite Urine Bilirubin Urine Urobilinogen Ur Leukocyte Esterase RPR Titer Hepatitis C Antibody HIV 1&2 Antibody Screen HIV P24 Antigen 12/04/16 12/04/16 12/05/16 16:32 19:28 05:38 WBC RBC Hgb Hct MCV MCH MCHC RDW Plt Count MPV Sodium Potassium Chloride Carbon Dioxide Anion Gap BUN Creatinine Creat Clearance w eGFR POC Glucometer 70 126 109 Random Glucose Calcium Total Bilirubin AST ALT Alkaline Phosphatase Total Protein Albumin Urine Color Urine Appearance Urine pH Ur Specific [place] Urine Protein Urine Glucose (UA) Urine Ketones Urine Blood Urine Nitrite Urine Bilirubin Urine Urobilinogen Ur Leukocyte Esterase RPR Titer Hepatitis C Antibody HIV 1&2 Antibody Screen HIV P24 Antigen Pertinent Admission Physical Exam Findings: withdrawal sx - Treatment Hospital Course: Detox Protocol Followed, Detoxed Safely, Responded well, Discharged Condition Good, Rehab Referral Accepted Patient has Accepted a Rehab Referral to: Yes, no beds available at this time will return when bed available - Medication Discharge Medications: Ambulatory Orders Aspirin [Baby Aspirin] 81 mg PO DAILY 05/05/11 Fluticasone/Salmeterol [Advair 500-50 Diskus] 1 each IH BID 05/05/11 Albuterol Sulfate Inhaler - [Ventolin HFA Inhaler -] 2 inh PO Q4H PRN 12/01/16 Citalopram Hydrobromide [Citalopram HBr] 40 mg PO DAILY 12/01/16 Gabapentin 800 mg PO TID 12/01/16 Glipizide [Glucotrol -] 5 mg PO DAILY 12/01/16 Metformin HCl [Glucophage] 1,000 mg PO BID 12/01/16 Montelukast Na [Singulair -] 10 mg PO HS 12/01/16 Ziprasidone [Geodon -] 40 mg PO BID 12/01/16 - Diagnosis (1) Alcohol dependence with uncomplicated withdrawal Current Visit: Yes Status: Acute (2) Insomnia Current Visit: Yes Status: Acute (3) Nicotine dependence Current Visit: Yes Status: Acute Qualifiers: Nicotine product type: cigarettes Substance use status: in withdrawal Qualified Code(s): F17.213 - Nicotine dependence, cigarettes, with withdrawal; F17.213 - Nicotine dependence, cigarettes, with withdrawal (4) Opioid dependence on agonist therapy Current Visit: Yes Status: Chronic (5) Substance induced mood disorder Current Visit: Yes Status: Acute (6) Arthritis, lumbar spine Current Visit: Yes Status: Chronic (7) Asthma Current Visit: Yes Status: Chronic Qualifiers: Asthma severity: moderate Asthma complication type: with status asthmaticus (8) COPD (chronic obstructive pulmonary disease) Current Visit: Yes Status: Chronic Qualifiers: COPD type: emphysema Emphysema type: unilateral Qualified Code(s ): J43.0 - Unilateral pulmonary emphysema [MacLeod's syndrome]; J43.0 - Unilateral pulmonary emphysema [MacLeod's syndrome]; J43.0 - Unilateral pulmonary emphysema [MacLeod's syndrome]; 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 Current Visit: Yes Status: Chronic (10) GERD (gastroesophageal reflux disease) Current Visit: Yes Status: Chronic Qualifiers: Esophagitis presence: without esophagitis Qualified Code(s): K21.9 - Gastro-esophageal reflux disease without esophagitis; K21.9 - Gastro- esophageal reflux disease without esophagitis; K21.9 - Gastro-esophageal reflux disease without esophagitis (11) Methadone maintenance therapy patient Current Visit: Yes Status: Chronic (12) Mobility impaired Current Visit: Yes Status: Chronic (13) Neuropathy Current Visit: Yes Status: Chronic (14) Post traumatic stress disorder (PTSD) Current Visit: Yes Status: Chronic (15) Use of cane as ambulatory aid Current Visit: Yes Status: Chronic (16) Weight loss Current Visit: Yes Status: Acute
[2016-12-05 13:28] VITALS: BP 118/79; PULSE 62; TEMP 97.6
== END 2016-12-05 14:33 | disposition home or self-care (01) | DRG 773 ==
LOC: YASAS 10:22 → Y3N 17:42
PROVIDERS: ADMIT Internal Medicine; ATTEND Internal Medicine
PROC: HZ2ZZZZ Detoxification Services for Substance Abuse Treatment (ICD-10-PCS; principal; 2016-12-01)
DX: F10.230 Alcohol dependence with withdrawal, uncomplicated (principal); F11.20 Opioid dependence, uncomplicated; F17.210 Nicotine dependence, cigarettes, uncomplicated; F19.24 Other psychoactive substance dependence with psychoactive substance-induced mood disorder; F43.10 Post-traumatic stress disorder, unspecified; E11.42 Type 2 diabetes mellitus with diabetic polyneuropathy; Z79.84 Long term (current) use of oral hypoglycemic drugs; G47.00 Insomnia, unspecified; K21.9 Gastro-esophageal reflux disease without esophagitis; G62.9 Polyneuropathy, unspecified; R26.2 Difficulty in walking, not elsewhere classified; Z99.89 Dependence on other enabling machines and devices; M46.96 Unspecified inflammatory spondylopathy, lumbar region; Z87.898 Personal history of other specified conditions; Z59.0 Homelessness
CPT/HCPCS: 36415; 80053; 81003; 85027; 86593; 86803; 87389; 93005; 93010